=== PATIENT | male | born 1945 | race Hispanic/Latino ===

== ENCOUNTER 2022-01-10 05:48 | Day surgery (SDC) | payer OTHER, MEDICARE ==
[2022-01-08 09:47] LABS: BASOPHILS % (AUTO) 1.2 % (0.0-5.0); EOSINOPHILS % (AUTO) 1.7 % (0.0-8.0); HEMATOCRIT 31.1 % (42-54); LYMPHOCYTES % (AUTO) 29.7 % (21.0-51.0); MEAN CORPUSCULAR HEMOGLOBIN 30.7 pg (27.0-33.0); MEAN CORPUSCULAR HGB CONC 33.8 g/dL (32.0-36.0); MEAN CORPUSCULAR VOLUME 90.9 fL (79-99); MONOCYTES % (AUTO) 7.4 % (3.0-13.0); NEUTROPHILS % (AUTO) 59.6 % (40.0-77.0); PLATELET COUNT (AUTO) 268 K/uL (130-400); RED BLOOD CELL COUNT(AUTO) 3.42 MIL/uL (4.50-6.20); RED CELL DISTRIBUTION WIDTH 13.5 % (11.0-15.5); WHITE BLOOD COUNT (AUTO) 8.4 K/uL (4.8-10.8)
[2022-01-08 09:57] LABS: ALBUMIN 4.1 g/dL (3.5-5.0); CARBON DIOXIDE 31 mmol/L (21-32); CHLORIDE 100 mmol/L (101-111); CREATININE 2.4 mg/dL (0.5-1.5); GLOMERULAR FILTR. RATE CALC 28 mL/min (>60); GLUCOSE,RANDOM 151 mg/dL (70-105); POTASSIUM 4.5 mmol/L (3.5-5.1); SODIUM SERUM 139 mmol/L (136-145); UREA NITROGEN, BLOOD 26 mg/dL (7-18)
[2022-01-08 09:58] LABS: CRP QUANTITATIVE < 2.00 mg/L (0.00-9.0)
[2022-01-09 11:29] VITALS: BP 116/66
[~2022-01-10] VITALS: Ht 165.1 cm; Wt 66.5 kg
[2022-01-10] VITALS (15 sets, daily range): BP systolic 87–126; BP diastolic 44–62
[2022-01-10] MEDS: CEFAZOLIN SODIUM 1 GM VIAL IVP SCH ×2 (05:00→07:15)
[~2022-01-10 05:48] MED LIST: BUPIVACAINE/PF 0.5% 10ML VIAL ONE; FURO20TA4 PO; LISI5TAB21 PO; METF500S9 PO; PANT40TA54 PO; SIMV-43 PO
[2022-01-10] MEDS ORDERED: 0.9%NACL 1000ML 1,000 ML IV ONE (06:20)
[2022-01-10] MEDS ORDERED: PROPOFOL 10 MG/ML 20ML VIAL IV ONE (06:55)
[2022-01-10] MEDS ORDERED: MIDAZOLAM HCL 1 MG/ML 2ML VIAL ONE (06:56)
[2022-01-10] MEDS ORDERED: FENTANYL CITRATE PF 50 MCG/1 ML 2ML VIAL ONE (06:56)
[2022-01-10] MEDS ORDERED: IOPAMIDOL 10 ML VIAL ONE (07:14)
== END 2022-01-10 09:30 | disposition home or self-care (01) ==
LOC: DAH 05:48
PROVIDERS: ATTEND Student in an Organized Health Care Education/Training Program
DX: M16.11 Unilateral primary osteoarthritis, right hip (principal); G89.29 Other chronic pain; E11.9 Type 2 diabetes mellitus without complications; I10 Essential (primary) hypertension; E78.5 Hyperlipidemia, unspecified; Z79.899 Other long term (current) drug therapy; Z98.890 Other specified postprocedural states
CPT/HCPCS: 87426; 82040; 80048; 85025; 84134; 86140; 36415; 93005; 20610; 73503; 82948 ×2; A4663; J3010; J0690; J7030; J3490; J2250; J2704; J1030; Q9966; A5120; A4215; A4223; A4222; A4221

== ENCOUNTER → 2022-03-10 | Outpatient (CLI) | payer OTHER, MEDICARE ==
[~2022-03-10] MED LIST changes: -BUPIVACAINE/PF 0.5% 10ML VIAL ONE
== END | disposition home or self-care (01) ==
LOC: RAH 10:05
PROVIDERS: ATTEND Internal Medicine Gastroenterology
DX: R63.4 Abnormal weight loss (principal); R68.81 Early satiety
CPT/HCPCS: 78264; A9541

== ENCOUNTER 2022-09-29 06:18 | Observation (INO) | payer OTHER, MEDICARE ==
[2022-09-26 10:06] LABS: APPEARANCE,URINE CLEAR (CLEAR); BILIRUBIN,URINE NEGATIVE (NEGATIVE); COLOR,URINE LIGHT-YELLOW (YELLOW); GLUCOSE, URINE (UA) 70 mg/dL (NEGATIVE); KETONES,URINE NEGATIVE (NEGATIVE); LEUKOCYTE ESTERASE ,URINE NEGATIVE Leu/uL (NEGATIVE); NITRATE,URINE NEGATIVE (NEGATIVE); OCCULT BLOOD,URINE NEGATIVE (NEGATIVE); PH,URINE 5.5 (5.0-8.0); PROTEIN,URINE 30 mg/dL (NEGATIVE); UROBILINOGEN,URINE 0.2 mg/dL (0.2-1.0)
[2022-09-26 10:11] LABS: ALBUMIN 3.9 g/dL (3.5-5.0)
[2022-09-26 10:12] LABS: CRP QUANTITATIVE < 2.00 mg/L (0.00-9.0)
[2022-09-26 10:28] LABS: MUCUS,URINE RARE LPF (None Seen); RBC,URINE 0-1 /HPF (0-1); SQUAMOUS EPITHELIAL CELL,UR RARE /HPF (0-2); WBC,URINE 0-1 /HPF (0-1)
[2022-09-26 10:34] VITALS: BP 148/67
[~2022-09-29] VITALS: Ht 165.1 cm; Wt 70.2 kg
[2022-09-29] VITALS (26 sets, daily range): BP systolic 112–144; BP diastolic 59–81
[~2022-09-29 06:18] MED LIST changes: -FURO20TA4 PO; +GLIP-162 PO; -METF500S9 PO; -PANT40TA54 PO; +TAMS-1 PO
[2022-09-29] MEDS ORDERED: CEFAZOLIN SODIUM 2 GM VIAL ONE (06:21)
[2022-09-29] MEDS ORDERED: 0.9%NACL 1000ML 1,000 ML IV ONE (06:21)
[2022-09-29] MEDS ORDERED: KETOROLAC 30MG VIAL (30MG/ML) ONE (08:57)
[2022-09-29] MEDS ORDERED: ROPIVACAINE 0.5% 5MG/ML 30ML IJ ONE ×2 (08:58→09:33)
[2022-09-29] MEDS ORDERED: TRANEXAMIC ACID 1000MG/10ML ONE (08:58)
[2022-09-29] MEDS ORDERED: GLYCOPYRROLATE 1 MG/5 ML SYRINGE ONE (09:34)
[2022-09-29] MEDS ORDERED: LIDOCAINE PF 100MG/5ML (2%) SYRINGE 5ML ONE (09:34)
[2022-09-29] MEDS ORDERED: PROPOFOL 10 MG/ML 20ML VIAL IV ONE (09:34)
[2022-09-29] MEDS ORDERED: ROCURONIUM 10MG/1ML SYR 10 MG/ML ML ONE (09:35)
[2022-09-29] MEDS ORDERED: ONDANSETRON 4MG INJ ONE ×2 (09:35→12:00)
[2022-09-29] MEDS ORDERED: FENTANYL CITRATE PF 50 MCG/1 ML 2ML VIAL ONE (09:35)
[2022-09-29] MEDS ORDERED: NEOSTIGMINE 5MG/5ML SYR IV ONE (09:35)
[2022-09-29] MEDS ORDERED: CEFAZOLIN SODIUM 2 GM VIAL IVPB ONE (09:40)
[2022-09-29] MEDS ORDERED: POTASSIUM CHLORIDE 10% ELIXIR 20 MEQ/15 ML UDCUP PO PRN (12:00)
[2022-09-29] MEDS ORDERED: FERROUS FUMARATE 324 MG TABLET PO PRN (12:00)
[2022-09-29] MEDS ORDERED: POTASSIUM CHLORIDE 20MEQ/100ML 100 ML IV PRN (12:00)
[2022-09-29] MEDS ORDERED: CYCLOBENZAPRINE HCL 10 MG TABLET PO PRN (12:00)
[2022-09-29] MEDS ORDERED: KCL 20 MEQ ERTAB PO PRN (12:00)
[2022-09-29] MEDS ORDERED: MEPERIDINE-PF 25 MG/ML SYG ONE ×2 (12:00→12:09)
[2022-09-29] MEDS ORDERED: TRAMADOL HCL 50 MG TABLET PO PRN (12:00)
[2022-09-29] MEDS ORDERED: CALCIUM CARB 500MG PO PRN (12:00)
[2022-09-29] MEDS ORDERED: ONDANSETRON 4MG INJ IVP PRN (12:00)
[2022-09-29] MEDS ORDERED: KETOROLAC 15MG/ML VIAL (15MG/ML) IV PRN (12:00)
[2022-09-29] MEDS: HYDROCODONE/ACETAMINOPHEN 5/325 MG TAB PO PRN ×2 (13:18→20:57)
[2022-09-29] MEDS: GABAPENTIN 100 MG CAPSULE PO SCH ×2 (14:14→20:52)
[2022-09-29] MEDS: INSULIN HUMULIN R 100 UNIT/ML 3ML SQ SCH ×2 (16:30→20:53)
[2022-09-29] MEDS: 0.9%NACL 1000ML 1,000 ML IV SCH (16:59)
[2022-09-29] MEDS: CEFAZOLIN SODIUM 2 GM VIAL IVPB SCH (17:13)
[2022-09-29] MEDS: DOCUSATE SODIUM 100 MG CAP PO SCH (20:52)
[2022-09-29] MEDS: TAMSULOSIN HCL 0.4 MG CAP.ER.24H PO SCH (20:52)
[2022-09-29] MEDS: SIMVASTATIN 20 MG TABLET PO SCH (20:53)
[2022-09-30] MEDS: CEFAZOLIN SODIUM 2 GM VIAL IVPB SCH (01:17)
[2022-09-30] MEDS: 0.9%NACL 1000ML 1,000 ML IV SCH ×2 (03:35→08:00)
[2022-09-30 04:17] VITALS: BP 125/80
[2022-09-30 05:48] LABS: MEAN CORPUSCULAR HEMOGLOBIN 31.6 pg (27.0-33.0); MEAN CORPUSCULAR HGB CONC 33.6 g/dL (32.0-36.0); MEAN CORPUSCULAR VOLUME 94.3 fL (79-99); RED BLOOD CELL COUNT(AUTO) 2.97 MIL/uL (4.50-6.20); RED CELL DISTRIBUTION WIDTH 13.3 % (11.0-15.5); WHITE BLOOD COUNT (AUTO) 7.7 K/uL (4.8-10.8)
[2022-09-30 05:51] LABS: CREATININE 2.3 mg/dL (0.5-1.5); POTASSIUM 4.7 mmol/L (3.5-5.1)
[2022-09-30] MEDS: INSULIN HUMULIN R 100 UNIT/ML 3ML SQ SCH ×4 (07:30→20:46)
[2022-09-30] MEDS: HYDROCODONE/ACETAMINOPHEN 5/325 MG TAB PO PRN ×2 (07:37→17:44)
[2022-09-30 08:00] VITALS: BP 122/66
[2022-09-30] MEDS: GLIPIZIDE XL 5MG TAB PO SCH (09:48)
[2022-09-30] MEDS: ASPIRIN 325MG TAB PO SCH (09:48)
[2022-09-30] MEDS: POLYETHYLENE GLYCOL 3350 17 GM POWD.PACK PO SCH (09:48)
[2022-09-30] MEDS: DOCUSATE SODIUM 100 MG CAP PO SCH ×2 (09:49→20:45)
[2022-09-30] MEDS: LISINOPRIL 5 MG TABLET PO SCH (09:49)
[2022-09-30] MEDS: GABAPENTIN 100 MG CAPSULE PO SCH ×3 (09:49→20:45)
[2022-09-30 11:53] VITALS: BP 112/68
[2022-09-30 16:00] VITALS: BP 117/71
[2022-09-30 20:17] VITALS: BP 142/69
[2022-09-30] MEDS: TAMSULOSIN HCL 0.4 MG CAP.ER.24H PO SCH (20:45)
[2022-09-30] MEDS: SIMVASTATIN 20 MG TABLET PO SCH (20:46)
[2022-09-30 23:07] VITALS: BP 140/55
[2022-10-01 04:11] VITALS: BP 107/65
[2022-10-01 05:36] LABS: CREATININE 2.3 mg/dL (0.5-1.5); POTASSIUM 4.3 mmol/L (3.5-5.1)
[2022-10-01] MEDS: HYDROCODONE/ACETAMINOPHEN 5/325 MG TAB PO PRN ×2 (06:18→14:13)
[2022-10-01] MEDS: INSULIN HUMULIN R 100 UNIT/ML 3ML SQ SCH ×3 (06:18→16:03)
[2022-10-01 08:00] VITALS: BP 117/67
[2022-10-01] MEDS: DOCUSATE SODIUM 100 MG CAP PO SCH ×2 (09:47→19:40)
[2022-10-01] MEDS: ASPIRIN 325MG TAB PO SCH (09:47)
[2022-10-01] MEDS: GLIPIZIDE XL 5MG TAB PO SCH (09:48)
[2022-10-01] MEDS: POLYETHYLENE GLYCOL 3350 17 GM POWD.PACK PO SCH (09:48)
[2022-10-01] MEDS: LISINOPRIL 5 MG TABLET PO SCH (09:48)
[2022-10-01] MEDS: GABAPENTIN 100 MG CAPSULE PO SCH ×3 (09:48→19:39)
[2022-10-01 12:00] VITALS: BP 125/66
[2022-10-01] MEDS ORDERED: HYDR-4060 PO (15:55)
[2022-10-01 16:00] VITALS: BP 122/80
[2022-10-01] MEDS: TAMSULOSIN HCL 0.4 MG CAP.ER.24H PO SCH (19:39)
[2022-10-01] MEDS: SIMVASTATIN 20 MG TABLET PO SCH (19:40)
[2022-10-01 20:12] VITALS: BP 145/67
[2022-10-02] MEDS ORDERED: BISACODYL 10 MG SUPP.RECT RC PRN (12:00)
== END 2022-10-01 20:20 ==
LOC: DAH 06:18 → DAHIP 06:19 → DAH 06:19 → 4AH 15:30
PROVIDERS: ADMIT Student in an Organized Health Care Education/Training Program; ATTEND Student in an Organized Health Care Education/Training Program
DX: M17.11 Unilateral primary osteoarthritis, right knee (principal); Z20.822 Contact with and (suspected) exposure to COVID-19; D62 Acute posthemorrhagic anemia; N17.9 Acute kidney failure, unspecified; I12.9 Hypertensive chronic kidney disease with stage 1 through stage 4 chronic kidney disease, or unspecified chronic kidney disease; E11.22 Type 2 diabetes mellitus with diabetic chronic kidney disease; N18.9 Chronic kidney disease, unspecified; D63.1 Anemia in chronic kidney disease; E11.65 Type 2 diabetes mellitus with hyperglycemia; E78.5 Hyperlipidemia, unspecified; M24.561 Contracture, right knee; M24.562 Contracture, left knee; Z96.651 Presence of right artificial knee joint; Z79.899 Other long term (current) drug therapy
CPT/HCPCS: 82040; 87088; 84134; 86140; 87426; 81001; 36415 ×3; 87641; 64447; 27447; 96365; 82948 ×10; 73560; 97039 ×4; 96366; 96375; 80048 ×2; 85027; 97161; 97116 ×4; G0378 ×55; A4663; A4215 ×2; J3010; J3490 ×2; J2710; J7030; J2001; J2704; J2405 ×2; J1885 ×2; J2175 ×2; J2795 ×2; J0690 ×4; C1713 ×2; G0168; C1776 ×2; A4649 ×3; A6255; A5120; A4223; A4222; A4221; A4600; J1815

== ENCOUNTER → 2023-09-03 | Outpatient (CLI) | payer OTHER ==
[~2023-09-03] MED LIST changes: +HYDR-4060 PO
== END | disposition home or self-care (01) ==
LOC: RAH 08:02
PROVIDERS: ATTEND Internal Medicine Cardiovascular Disease
DX: Z13.6 Encounter for screening for cardiovascular disorders (principal)
CPT/HCPCS: 75571

== ENCOUNTER → 2023-09-18 | Outpatient (CLI) | payer OTHER, MEDICARE | END | disposition home or self-care (01) | LOC: SHCH 09:36 | PROVIDERS: ATTEND Internal Medicine Cardiovascular Disease | DX: I07.1 Rheumatic tricuspid insufficiency (principal); R07.9 Chest pain, unspecified; I11.9 Hypertensive heart disease without heart failure | CPT/HCPCS: 93306 ==